=== PATIENT | female | born 1955 | race Caucasian/White ===

== ENCOUNTER 2018-11-18 09:15 | Outpatient (CLI) | payer OTHER ==
--- NOTE | 2018-11-18 12:05 | Diagnostic Imaging Report ---
<p>Your browser does not support iframes.</p> Boris Min [facility] [address] [facility] [address] [place] [address]. [id number] Report Submission Date: Nov 18, 2018 11:27:20 AM CDT Patient Study Name: YAN HONEYCUTT Date: Nov 18, 2018 10:27:55 AM CDT Modality Type: DX Gender: F Description: PELVIS AP 1 OR 2 VIEWS : 53 Institution: [facility] Physician: Boris Min Examination: Plain film pelvis History: BILAT HIP PAIN X 2-3 YEARS PATIENT STATES GETTING WORSE OVER FEW WEEKS Comparison exams: None provided Findings: 2 views of the pelvis demonstrates osteopenia. Articular degenerative changes, left greater than right. No fracture. No dislocation. Superior and inferior pubic rami and iliac wings are without abnormality. Impression: Osteopenia and degenerative changes. No acute appearing osseous process. Electronically signed on Nov 18, 2018 11:27:20 AM CDT by: Brennan LANGE
--- NOTE | 2018-11-18 12:06 | Diagnostic Imaging Report ---
Boris Min [facility] [address] [facility] [address] [address] Report Submission Date: Nov 18, 2018 11:27:14 AM CDT Patient Study Name: YAN HONEYCUTT Date: Nov 18, 2018 10:37:59 AM CDT Modality Type: DX Gender: F Description: L SPINE 2 OR 3 VIEWS : 53 Institution: [facility] Physician: Boris Min Examination: Plain film lumbar spine History: BILAT HIP PAIN X 2-3 YEARS PATIENT STATES GETTING WORSE OVER FEW WEEKS Findings: 3 views of the lumbar spine demonstrates osteopenia. Degenerative spurring. L5/S1 listhesis. No anterior compression. Slight curvature to the right. Vascular calcifications. Impression: Osteopenia and degenerative changes. No vertebral body compression deformity. Electronically signed on Nov 18, 2018 11:27:14 AM CDT by: Brennan LANGE
--- NOTE | 2018-11-21 08:22 | CONSULTATION REPORT ---
YAN HONEYCUTT Chart No.: [id number] : 1955 DATE OF CONSULTATION: 11/18/2018 CHIEF COMPLAINT: Bilateral lower extremity hip pain. HISTORY OF PRESENT ILLNESS: This is a 63-year-old moderately obese white female (calculated BMI based on patient information is 36.04 today). She indicates having had troubles with hips for about two years. She says pain started in the lateral aspect of the right hip and it moved to the lateral aspect of the left hip. She says her chiropractor then popped her left hip and made it a little better. He diagnosed gluteus muscle injury, she indicates. She has had pain in both lower extremities, extending to the davies area bilaterally. She does report having fallen a couple of months ago, had pain when that occurred. She indicates the pain is diffuse or all over. She describes quality of pain is aching, sharp, throbbing, indicated as moderate in severity. It improves at times, but worsens at times. She rates her pain at rest as 5/10 and pain with activity as 8/10. She does report hip stiffness. She indicates she has worse pain when she tries to walk, kneel, squat, put on shoes and socks and especially rising after sitting, as well as getting in and out of the car or chair, climbing stairs, bending. Nonsteroidal medication makes the pain a little better, as does rest. Pain has progressed with activities of daily living. She sometimes has night pain which awakens her at night. She does report a fear of falling. She does experience giving out sometimes. She ambulates with moderate difficulty. She has not been using ambulatory assistive devices. She has not taken narcotic pain medication for the hip pain. She indicates she has never been treated for back problems. She has taken ibuprofen routinely. She has not undergone physical therapy. She has tried acupuncture in addition to chiropractic. She has not tried weight reduction for this particular problem, but has dieted in the past. PAST MEDICAL HISTORY: She does report having negative diabetes, heart problems, heart stents, pulmonary embolism, deep venous thrombosis, blood clotting disorder, stroke, hepatitis, kidney problems, dental problems, rheumatoid disease, lymphedema, any recent infections or any MRSA. She has never had hip or back surgery. FAMILY HISTORY: Family history is negative for familial/congenital disorders and negative in particular for pulmonary embolism as well as blood clots, bone disease or rheumatoid disease. Family history is positive for hypertension in her mother, diabetes in one sibling. SOCIAL HISTORY: This patient's social history is positive for cigarette usage, smoking one half pack per day since her early 20s, continuing currently. She denies alcohol use, abuse or history of same. She denies illicit drug use, abuse or history of same. She does not take fish oil. The patient does not indicate requirement for prolonged walking, standing, kneeling or heavy lifting. She sees Dr. Frias for routine primary care needs. She is , has two children. PAST SURGICAL HISTORY: She has never had surgery. MEDICATIONS: The patient's current medications include [employer] Thyroid 60 mg two and a half pills by mouth daily, vitamin B12 1000 mg daily, vitamin D3 one p.o. q. day. ALLERGIES: She reports no known drug allergies. REVIEW OF SYSTEMS: The patient's review of systems is positive for hypothyroidism symptomatology. Denies shortness of breath, dyspnea on exertion. Denies cough or wheezing. Denies palpitations, chest pain, orthopnea. Denies nausea, vomiting, diarrhea, bloody stools. Denies dysuria, hematuria, routine urgency or frequency. Denies psychiatric treatment, depression, suicidal ideation. The patient does note thyroid problems. Denies seizures, tremors, blackouts, fainting episodes. PHYSICAL EXAMINATION: The patient's vital signs are recorded revealing blood pressure 147/85, pulse 86, respirations 18 with oxygen saturation of 96% on room air. The patient's weight is 207 pounds with a height of 5 feet, 4 inches. She has calculated BMI of approximately 36. HEENT: Normocephalic. Neck: Supple. Lungs: Clear to percussion bilaterally. Cardiovascular: Regular, rate and rhythm with pulses present and symmetric at the posterior tibialis bilaterally. Abdomen: Soft, nontender. Extremities: The patient does have limited range of motion both hips, essentially unable to internally rotate on either side. The left is more restricted than the right. The patient has flexion arc in each hip to about 70 degrees. She does report ambulating with a limp and this is noted on exam. She rests with the hip slightly externally rotated. I do note that there is prominent limp, the patient has limited range of motion in forward bending and hyperextension of the back. There is good capillary refill distally both lower extremities with normal skin color and appearance distally. The patient moves rather slowly. She does complain of pain in the davies region, says that the pain runs in the gluteal region across the lateral aspect of her hips and thighs and then seems to jump down to below the knees. She does not note particularly pain in the feet. Findings are bilateral, left side somewhat worse at this point, she reports. X-RAYS: Plain film x-rays are obtained, and these include lumbosacral spine films, AP and lateral, as well as lateral sacroiliac view in addition to AP, pelvis and lateral views of both hips (frog laterals). These are noted to reveal L3-4 intervertebral disc space narrowing with degenerative changes observed at that level on both AP and lateral views. The patient does appear to have some spondylolisthesis, mild, at L5-S1 level, noted on the lateral views. I see no acute bony abnormalities or fractures. The AP, pelvis and lateral hip x-rays reveal moderately severe degenerative changes left hip with [id number] apposition left hip, along the lateral margin of the femoral head. There are sclerotic changes along the joint surfaces as well as suggestion of cyst formation noted bilaterally, most notably on the left, on both sides of the joint. There are marginal osteophytes noted, with only mild joint space narrowing on the right, [id number] on the left. No fractures or dislocations are identified. Note is made that the lumbosacral spine x-rays do reveal calcific changes in the region corresponding to descending aorta, near the bifurcation, but this is certainly limited assessment on plain film x-rays. IMPRESSION: 1. Degenerative joint disease of hips, left side most affected. 2. Cigarette smoker, current. 3. Moderate obesity. 4. Hypothyroidism. 5. Lumbosacral spine degenerative disease at L3-4 and with some mild spondylolisthesis L5-S1. 6. Calcific changes on plain film x-rays in the region anterior to the lumbar spine, uncertain significance. 7. Impaired mobility. RECOMMENDATIONS: Options are discussed with the patient. I believe that she would benefit from a left total hip arthroplasty at this point and, likely down the road, additional orthopedic surgical intervention for the right hip as needed. She would need to have a limited vascular evaluation prior to undergoing left hip replacement surgery, to include abdominal ultrasound. Given her limited mobility, it is difficult to assess clinically if she has claudication. I did academic counselor her that she likely will end up requiring spine evaluation by a separate provider. I did advise her that nicotine cessation in all forms is required in order to qualify for a hip joint replacement. We would anticipate doing a left hip replacement first once she does quality. She is advised that she is at some increased risk, in view of her elevated BMI, compared to normal risk associated with an individual whose BMI is under 30. I did advise her that my expectation is that her risk would be on the order of 10- 15% dissatisfaction rate versus approximately 5% dissatisfaction rate in an individual without risk factors (obesity and smoking in particular). I did advise that infection, loosening, dislocation of components, need for revision on one or more occasions, periprosthetic fractures are the most prominent concerns/complications/issues which arise, although other issues do include, but are not limited to, , amputation, myocardial infarction, stroke, life and/or limb threatening blood clots, leg length discrepancy, nerve damage, foot drop, impaired gait, persistent limp, failure to relieve pain, worse pain, vascular damage. I did advise her that no guarantees as to results can be provided, although I would expect that improvement in the level of discomfort she is experiencing from current range of motion of her hip would likely improve. She acknowledges. I did answer a number of questions she had. She wants to think all of this over, as she says she was hoping to hear that she did not have much wrong or that it would be easily fixed. She is advised that use of the walking cane is appropriate, as are use of analgesic creams and various nonsurgical measures such as weight reduction efforts. Should she decide she does want to proceed with left hip joint replacement, again, we will need vascular clearance and we will need to have negative nicotine test, normal is six weeks before and after surgery, to qualify. She is encouraged in weight reduction efforts in the meantime, advising her that 80% of such improvement is generally nutritional versus 20% activity related. She thanks me for assessment and I appreciate the opportunity to evaluate this pleasant lady. Sincerely, Brois Min MD (Dictated/not signed) /[employer] [id number] JOB #[id number] felipe LANGE
== END 2018-11-18 10:00 ==
LOC: OUT 09:15
PROVIDERS: ATTEND Orthopaedic Surgery
DX: M16.12 Unilateral primary osteoarthritis, left hip (principal); F17.210 Nicotine dependence, cigarettes, uncomplicated; E66.01 Morbid (severe) obesity due to excess calories; Z68.36 Body mass index [BMI] 36.0-36.9, adult; E03.9 Hypothyroidism, unspecified; M51.37 Other intervertebral disc degeneration, lumbosacral region; R93.7 Abnormal findings on diagnostic imaging of other parts of musculoskeletal system; Z74.09 Other reduced mobility
CPT/HCPCS: 72100; 73521; 99214